=== PATIENT | female | born 1990 | race Caucasian/White ===

== ENCOUNTER 2016-06-03 17:58 | Emergency (ER) | payer MEDICAID, OTHER ==
[2016-06-03] MEDS ORDERED: DOXYCYCLINE HYCLATE 100 MG TABLET ONE (18:50)
[2016-06-03] MEDS ORDERED: PREDNISONE 20 MG TABLET ONE (18:50)
--- NOTE | 2016-06-03 19:07 | RAD ---
Name: MAYANK EDDY SELF Exam: Two-view chest Comparison: None Clinical history: Cough and fever Findings: 2 views of the chest are submitted. The heart mediastinum and hilar structures are within normal limits. There is no failure, infiltrate, pleural effusion or pneumothorax. Regional skeleton is within normal limits. Impression: No acute cardiopulmonary process
== END 2016-06-03 19:29 | disposition home or self-care (01) ==
LOC: ED 17:58
DX: R04.2 Hemoptysis (principal); R05 Cough; F17.219 Nicotine dependence, cigarettes, with unspecified nicotine-induced disorders
CPT/HCPCS: 71020; 87804; 99283 ×2; J7512; A9270

== ENCOUNTER 2016-08-11 14:05 | Emergency (ER) | payer MEDICAID ==
[2016-08-11] MEDS ORDERED: IOPAMIDOL 300 (61%) 100 ML VIAL IV ONE (14:06)
--- NOTE | 2016-08-11 16:57 | CT ---
FACIAL BONES W/ CON COMPARISON: None. HISTORY: Recent wisdom tooth removal 07/08/2016, with left trismus. Technique: Intravenous injection 80 mL of Isovue 300. The facial bones were imaged with a [employer] Aqu[employer] [address] scanner. An automated dose reduction technique was used to minimize patient radiation dose. Dose information: CTDIvol (mGy) 28.80 DLP(mGycm) 593.7 FINDINGS: Bones: Normal. Teeth: Left mandible molar 17 removed with soft tissue and air density and disruption of the lateral buccal surface of the overlying bone compatible with localized infection at the site of wisdom tooth removal. No abscess. Temporomandibular joints: Normal. Paranasal sinuses: Mild mucosal thickening of the floor of the right maxillary sinus and the floor the sphenoid sinus. Nasal passages: Normal. Orbits: Normal. Skull base: Normal. Upper cervical spine: Normal. Tongue: Normal. Salivary glands: Normal. Soft tissues: Normal. IMPRESSION: Infection in the posterior left mandible at the site of wisdom tooth removal with disruption of the buckle surface of the mandible. No associated soft tissue changes. No abscess. The report was sent to the emergency department electronic medical record system 08/11/2016 at 16:59
== END 2016-08-11 18:07 | disposition home or self-care (01) ==
LOC: ED 14:05
DX: M26.622 Arthralgia of left temporomandibular joint (principal); K04.7 Periapical abscess without sinus